=== PATIENT | male | born 1990 | race Caucasian/White ===

== ENCOUNTER 2021-08-09 14:33 | Emergency (ER) | payer OTHER ==
[~2021-08-09] VITALS: Ht 172.7 cm; Wt 67.6 kg
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
[2021-08-09] MEDS ORDERED: IBUPROFEN 800 MG TAB PO ONE (21:10)
[2021-08-09 21:36] VITALS: BP 123/65
== END 2021-08-09 21:36 | disposition home or self-care (01) ==
LOC: M ED 14:33
DX: Z04.1 Encounter for examination and observation following transport accident (principal); M25.512 Pain in left shoulder; M54.2 Cervicalgia; F17.290 Nicotine dependence, other tobacco product, uncomplicated

== ENCOUNTER 2021-11-19 14:35 | Emergency (ER) | payer OTHER ==
[~2021-11-19] VITALS: Ht 172.7 cm; Wt 75.8 kg
[2021-11-19 23:29] VITALS: BP 122/72
== END 2021-11-19 23:30 | disposition home or self-care (01) ==
LOC: M ED 14:35
DX: K42.9 Umbilical hernia without obstruction or gangrene (principal); F17.200 Nicotine dependence, unspecified, uncomplicated

== ENCOUNTER 2022-01-05 09:21 | Day surgery (SDC) | payer OTHER ==
[~2022-01-05] VITALS: Ht 172.7 cm; Wt 74.6 kg
[~2022-01-05 09:21] MED LIST: ACET-907 PO; IBUP200T46 PO; LIDOCAINE 1% MDV 20ML VIAL SQ PRN; LR 1,000 ML IV ONE; ceFAZolin SOD 2 GM in IV 1 EA IV ONE
[2022-01-05] MEDS ORDERED: LIDOCAINE W/EPINEPHRINE 1% 20ML VIAL As Ordered ONE (11:25)
[2022-01-05] MEDS ORDERED: MIDAZOLAM INJ 2MG/2ML VIAL (J2250 PER 1MG) As Ordered ONE (11:41)
[2022-01-05] MEDS ORDERED: dexameTHASONE 4 MG/ML 1ML VIAL (J1100 PER 1MG) As Ordered ONE (11:41)
[2022-01-05] MEDS ORDERED: LIDOCAINE 2% 100MG/5ML SDV (FOR ANES.) As Ordered ONE (11:41)
[2022-01-05] MEDS ORDERED: SUGAMMADEX SODIUM 500 MG/5 ML VIAL (BRIDION) As Ordered ONE (11:41)
[2022-01-05] MEDS ORDERED: fentaNYL 250 MCG/5 ML INJECTION As Ordered ONE (11:41)
[2022-01-05] MEDS ORDERED: METOCLOPRAMIDE INJ 10MG/2ML VIAL (J2765 PER 1) As Ordered ONE (11:41)
[2022-01-05] MEDS ORDERED: ONDANSETRON 4MG/2ML VIAL As Ordered ONE (11:41)
[2022-01-05] MEDS ORDERED: KETOROLAC 60MG 2ML VIAL As Ordered ONE (11:41)
[2022-01-05] MEDS ORDERED: ROCURONIUM BROMIDE 50 MG/5 ML VIAL As Ordered ONE ×3 (11:41→12:25)
[2022-01-05] MEDS ORDERED: propofoL 200 MG/20 ML VIAL As Ordered ONE (11:41)
[2022-01-05] MEDS ORDERED: ACETAMINOPHEN 1000MG 100ML IV BTL (OFIRMEV) (J0131 PER 10MG) As Ordered ONE (11:44)
[2022-01-05] MEDS ORDERED: HYDROmorphone HCL 2MG/ML 1ML VIAL As Ordered ONE (12:25)
[2022-01-05] MEDS ORDERED: fentaNYL 100 MCG/2 ML INJECTION As Ordered ONE (13:43)
[2022-01-05] MEDS ORDERED: PERCOCET 5MG/325MG TAB PO PRN ×3 (13:45→13:55)
[2022-01-05] MEDS ORDERED: METOCLOPRAMIDE INJ 10MG/2ML VIAL (J2765 PER 1) IV PRN (13:45)
[2022-01-05] MEDS ORDERED: LR 1,000 ML IV SCH (13:45)
[2022-01-05] MEDS ORDERED: ONDANSETRON 4MG/2ML VIAL IV PRN (13:45)
[2022-01-05] MEDS: fentaNYL 100 MCG/2 ML INJECTION IV PRN ×4 (13:47→14:08)
[2022-01-05] MEDS ORDERED: MEPERIDINE INJ 25 MG/ML VIAL (J2175) As Ordered ONE (13:50)
[2022-01-05] MEDS ORDERED: NS 1,000 ML IV SCH (13:55)
[2022-01-05] MEDS: MEPERIDINE INJ 25 MG/ML VIAL (J2175) IV PRN ×2 (13:56→14:01)
[2022-01-05 14:54] VITALS: BP 132/81
== END 2022-01-05 15:04 | disposition home or self-care (01) ==
LOC: M SDC 09:21
PROVIDERS: ATTEND Surgery
DX: K40.21 Bilateral inguinal hernia, without obstruction or gangrene, recurrent (principal); K42.9 Umbilical hernia without obstruction or gangrene; F17.218 Nicotine dependence, cigarettes, with other nicotine-induced disorders
CPT/HCPCS: 49651; 49652; C1781; J0131; J0690; J1100; J1170; J1885; J2175; J2250; J2405; J2765; J3010; S2900

== ENCOUNTER → 2022-02-10 | Outpatient (CLI) | payer OTHER ==
[~2022-02-10] MED LIST changes: +GASTROGRAFIN SOLUTION 30ML (Q9963) As Ordered ONE; +ISOVUE-370 76% 100ML VIAL As Ordered ONE; -LIDOCAINE 1% MDV 20ML VIAL SQ PRN; -LR 1,000 ML IV ONE; -ceFAZolin SOD 2 GM in IV 1 EA IV ONE
== END ==
LOC: M RAD 15:25
PROVIDERS: ATTEND Surgery
DX: R10.84 Generalized abdominal pain (principal); R19.4 Change in bowel habit; K42.9 Umbilical hernia without obstruction or gangrene
CPT/HCPCS: 74178; Q9963; Q9967

== ENCOUNTER 2022-06-18 11:53 | Inpatient (IN) | payer OTHER ==
[~2022-06-18] VITALS: Ht 172.7 cm; Wt 78.4 kg
[~2022-06-18 11:53] MED LIST changes: -GASTROGRAFIN SOLUTION 30ML (Q9963) As Ordered ONE; -ISOVUE-370 76% 100ML VIAL As Ordered ONE
[2022-06-18 15:33] LABS: HEMATOCRIT 47.8 % (42.0-52.0); HEMOGLOBIN 15.8 g/dl (13.5-17.5); MEAN CORPUSCULAR HEMOGLOBIN 29.8 pg (27.0-33.0); MEAN CORPUSCULAR HGB CONC 33.1 g/dl (32.0-36.5); PLATELET COUNT, AUTOMATED 210 10^3/uL (150-450); RED BLOOD COUNT 5.31 10^6/uL (4.30-6.10); WHITE BLOOD COUNT 6.2 10^3/uL (4.0-10.0)
[2022-06-18 16:03] LABS: RSV AMPLIFICATION NEGATIVE (NEGATIVE)
[2022-06-18 16:11] LABS: AMPHETAMINES LEVEL URINE NEGATIVE (NEGATIVE); BARBITURATES URINE NEGATIVE (NEGATIVE); BENZODIAZEPINES URINE NEGATIVE (NEGATIVE); CANNABINOIDS URINE NEGATIVE (NEGATIVE); COCAINE METABOLITE URINE NEGATIVE (NEGATIVE); METHADONE URINE NEGATIVE (NEGATIVE); OPIATES URINE NEGATIVE (NEGATIVE); PHENCYCLIDINE URINE NEGATIVE (NEGATIVE)
[2022-06-18 16:16] LABS: ACETAMINOPHEN LEVEL < 2.0 UG/ML (10.0-30.0); ALBUMIN 4.2 GM/DL (3.2-5.2); ALT/SGPT 27 U/L (12-78); BILIRUBIN,DIRECT 0.2 MG/DL (0.0-0.2); BILIRUBIN,TOTAL 0.7 MG/DL (0.2-1.0); BLOOD UREA NITROGEN 9 MG/DL (7-18); CARBON DIOXIDE LEVEL 29 MEQ/L (21-32); CHLORIDE LEVEL 106 MEQ/L (98-107); CREATININE FOR GFR 0.93 MG/DL (0.70-1.30); ETHYL ALCOHOL (ETHANOL) 0.005 % (0.000-0.010); GLOMERULAR FILTRATION RATE > 60.0 (>60); GLUCOSE, FASTING 82 MG/DL (70-100); POTASSIUM SERUM 4.1 MEQ/L (3.5-5.1); SALICYLATE LEVEL < 1.7 MG/DL (5.0-30.0); SODIUM LEVEL 139 MEQ/L (136-145); TOTAL PROTEIN 7.2 GM/DL (6.4-8.2)
[2022-06-18] MEDS ORDERED: ACETAMINOPHEN TAB 650MG DOSE (2X325MG) PO ONE (17:10)
[2022-06-18] MEDS ORDERED: ACET-683 PO (19:58)
[2022-06-18] MEDS ORDERED: NAPR-885 PO (19:58)
[2022-06-18] MEDS ORDERED: HOME MED LIST COMPLETE! XX SCH (20:00)
[2022-06-19] MEDS ORDERED: IBUPROFEN 600MG TAB PO ONE (20:40)
[2022-06-21] MEDS ORDERED: IBUPROFEN 400MG TAB PO PRN (13:30)
[2022-06-21] MEDS ORDERED: diphenhydrAMINE 25MG CAP PO PRN (13:30)
[2022-06-21] MEDS ORDERED: MOM 30ML SUSPENSION UDC PO PRN (13:30)
[2022-06-21] MEDS ORDERED: traZODone 50 MG TAB PO PRN (13:30)
[2022-06-21] MEDS ORDERED: MAALOX 30 ML SUSP *UDC PO PRN (13:30)
[2022-06-21 15:00] LABS: RSV AMPLIFICATION NEGATIVE (NEGATIVE)
[2022-06-21 18:31] VITALS: BP 131/91
[2022-06-22 06:41] VITALS: BP 129/88
[2022-06-22 16:28] VITALS: BP 136/84
[2022-06-23 06:36] VITALS: BP 141/85
== END 2022-06-23 14:25 | disposition home or self-care (01) | DRG 881 ==
LOC: M ED 11:53 → M ED INP 06-21 13:30 → M PSY 06-21 17:20
PROVIDERS: ADMIT Student in an Organized Health Care Education/Training Program; ATTEND Student in an Organized Health Care Education/Training Program
DX: F43.21 Adjustment disorder with depressed mood (principal); R45.851 Suicidal ideations; R45.850 Homicidal ideations; F17.200 Nicotine dependence, unspecified, uncomplicated; M54.59 Other low back pain